=== PATIENT | male | born 1995 | race Caucasian/White ===

== ENCOUNTER → 2020-05-16 | Outpatient (CLI) | payer OTHER ==
[~2020-05-16] VITALS: Ht 176.5 cm; Wt 171.5 kg
[2020-05-16 16:14] VITALS: BP 126/80; PULSE 88
== END ==
LOC: LIGHT 14:11
DX: E66.01 Morbid (severe) obesity due to excess calories (principal); Z68.43 Body mass index [BMI] 50.0-59.9, adult; M54.5 Low back pain; E78.5 Hyperlipidemia, unspecified; E16.1 Other hypoglycemia
CPT/HCPCS: G0463